=== PATIENT | male | born 1980 | race Caucasian/White ===

== ENCOUNTER → 2016-09-12 | Outpatient (CLI) | payer BC | LOC: BHSO 08:56 | DX: F41.1 Generalized anxiety disorder (principal) ==

== ENCOUNTER → 2017-02-06 | Outpatient (CLI) | payer BC | LOC: BHSO 08:57 | DX: F41.1 Generalized anxiety disorder (principal) ==

== ENCOUNTER → 2017-03-20 | Outpatient (CLI) | payer BC | LOC: BHSO 09:58 | DX: F41.1 Generalized anxiety disorder (principal) ==

== ENCOUNTER → 2017-05-03 | Outpatient (CLI) | payer BC | LOC: BHSO 09:56 | DX: F41.1 Generalized anxiety disorder (principal) ==

== ENCOUNTER → 2017-06-26 | Outpatient (CLI) | payer BC | LOC: BHSO 09:15 | DX: F41.1 Generalized anxiety disorder (principal) ==

== ENCOUNTER → 2017-09-07 | Outpatient (CLI) | payer BC | LOC: BHSO 09:17 | DX: F41.1 Generalized anxiety disorder (principal) | CPT/HCPCS: G0463 ==

== ENCOUNTER → 2018-09-04 | Outpatient (CLI) | payer BC | LOC: BHSO 13:13 | DX: F41.1 Generalized anxiety disorder (principal) | CPT/HCPCS: G0463 ==

== ENCOUNTER → 2019-09-10 | Outpatient (CLI) | payer BC | LOC: BHSO 08:14 | DX: F41.1 Generalized anxiety disorder (principal) | CPT/HCPCS: G0463 ==

== ENCOUNTER → 2020-03-09 | Outpatient (CLI) | payer BC | LOC: BHSO 07:57 | DX: F41.1 Generalized anxiety disorder (principal) | CPT/HCPCS: G0463 ==